=== PATIENT | male | born 1955 | race American Indian/Alaskan Native ===

== ENCOUNTER → 2017-11-12 10:24 | Outpatient (CLI) | payer OTHER, SELFPAY | PROVIDERS: Visit Provider Family Medicine | DX: K30 Functional dyspepsia (principal) | CPT/HCPCS: 36415; 86677 ==

== ENCOUNTER → 2020-06-30 13:09 | Outpatient (CLI) | payer MEDICARE, MEDICAID, OTHER, SELFPAY ==
[2020-06-30 15:01] LABS: Add Manual Diff / Slide Review NO; Basophils Absolute Auto 100 /uL (0-100); Basophils Percent Auto 1.1 % (0-2); Eosinophils Absolute Auto 200 /uL (0-450); Eosinophils Percent Auto 4.4 % (2-4); Hematocrit 32.4 % (41-53); Hemoglobin 10.4 g/dL (13.5-17.5); Lymphocytes Absolute Auto 1600 /uL (1100-4500); Lymphocytes Percent Auto 31.1 % (25-40); Mean Corpuscular Hemoglobin 23.7 PG (26-34); Monocytes Absolute Auto 500 /uL (0-900); Monocytes Percent Auto 9.1 % (3-14); Neutrophils Absolute Auto 2800 /uL (1500-7000); Neutrophils Percent Auto 54.3 % (50-75); Platelet Count 264 X10^3/uL (150-400); Red Blood Cell Count 4.38 X10^6/uL (4.5-5.9); White Blood Cell Count 5.1 X10^3/uL (4.5-11.0)
[2020-06-30 15:36] LABS: Alanine Aminotransferase 11 IU/L (<50); Albumin 3.9 g/dL (3.5-5.0); Albumin Globulin Ratio 1.2 (1.0-2.8); Alkaline Phosphatase 71 U/L (38-126); Aspartate Aminotransferase 23 IU/L (17-59); BUN Creatinine Ratio 10.5 (6-22); Bilirubin Total 0.7 mg/dL (0.2-1.3); Blood Urea Nitrogen 9 mg/dL (9-20); Calcium 8.5 mg/dL (8.4-10.2); Carbon Dioxide 21 mmol/L (22-32); Chloride 108 mmol/L (98-107); Estimated Glomerular Filt Rate > 60.0 mL/min (>60); Globulin 3.3 g/dL (1.7-4.1); Glucose 102 mg/dL (80-110); HEMOLYSIS < 15 (0-50); Potassium 3.8 mmol/L (3.4-5.1); Sodium 136 mmol/L (137-145); Total Protein 7.2 g/dL (6.3-8.2)
[2020-06-30 15:36] LABS: Iron 25 ug/dL (49-181)
[2020-06-30 15:46] LABS: Total Iron Binding Capacity 428 ug/dL (261-462)
[2020-07-04 17:16] LABS: Interpretation Positive (Negative)
== END ==
PROVIDERS: PCP Family Medicine; Referring Provider Family Medicine; Visit Provider Family Medicine
DX: R10.9 Unspecified abdominal pain (principal)
CPT/HCPCS: 36415; 80053; 83013; 83540; 83550; 85025

== ENCOUNTER 2021-06-06 13:12 | Emergency (ER) | payer MEDICARE, MEDICAID, OTHER, SELFPAY ==
[2021-06-06] VITALS (10 sets, daily range): BP systolic 109–119; BP diastolic 71–82; PULSE 94–104; RESP 15–20; TEMP 36.2; O2SAT 97–100; BMI 26.6
--- NOTE | 2021-06-06 13:37 | DI.RAD.S_ITS ---
PROCEDURE: XR CHEST 2V INDICATIONS: shortness of breath TECHNIQUE: 2 views of the chest were acquired. COMPARISON: [facility], CR, XR CHEST 1 VIEW, 09/22/2018, 23:33. [facility], CR, CHEST 1VW (PORTABLE), 04/19/2012, 12:24. FINDINGS: Surgical changes and devices: Cholecystectomy clips are seen. Lungs and pleura: Generalized interstitial prominence can be seen. Likely trace bilateral pleural effusions are present. No pneumothorax. Mediastinum: Mediastinal contours are normal. Heart size is moderately enlarged. Bones and chest wall: No suspicious bony abnormalities. Soft tissues appear unremarkable. IMPRESSION: Cardiomegaly with interstitial prominence and likely trace bilateral pleural effusions. Please correlate with patient presentation, physical examination findings, and laboratory values for congestive heart failure. Dictated by: Gurpreet Sanchez M.D. on 06/06/2021 at 13:05 Approved by: Gurpreet Sanchez M.D. on 06/06/2021 at 13:06
[2021-06-06 14:05] LABS: Add Manual Diff / Slide Review NO; Basophils Absolute Auto 100 /uL (0-100); Basophils Percent Auto 1.3 % (0-2); Eosinophils Absolute Auto 0 /uL (0-450); Eosinophils Percent Auto 0.7 % (2-4); Hemoglobin 8.9 g/dL (13.5-17.5); Lymphocytes Absolute Auto 1200 /uL (1100-4500); Lymphocytes Percent Auto 24.9 % (25-40); Mean Corpuscular HGB Conc 31.7 % (30-36); Mean Corpuscular Hemoglobin 21.9 PG (26-34); Monocytes Absolute Auto 500 /uL (0-900); Monocytes Percent Auto 10.5 % (3-14); Neutrophils Absolute Auto 3000 /uL (1500-7000); Neutrophils Percent Auto 62.6 % (50-75); Platelet Count 270 X10^3/uL (150-400); Red Blood Cell Count 4.06 X10^6/uL (4.5-5.9); Red Cell Distribution Width 17.6 % (11.6-14.8); White Blood Cell Count 4.8 X10^3/uL (4.5-11.0)
[2021-06-06 14:17] LABS: Alanine Aminotransferase 23 IU/L (<50); Albumin 3.7 g/dL (3.5-5.0); Albumin Globulin Ratio 1.2 (1.0-2.8); Alkaline Phosphatase 71 U/L (38-126); Aspartate Aminotransferase 33 IU/L (17-59); BUN Creatinine Ratio 15.4 (6-22); Bilirubin Total 1.1 mg/dL (0.2-1.3); Blood Urea Nitrogen 14 mg/dL (9-20); Calcium 7.9 mg/dL (8.4-10.2); Carbon Dioxide 17 mmol/L (22-32); Chloride 108 mmol/L (98-107); Estimated Glomerular Filt Rate > 60.0 mL/min (>60); Globulin 3.1 g/dL (1.7-4.1); Glucose 99 mg/dL (80-110); HEMOLYSIS < 15 (0-50); Sodium 136 mmol/L (137-145); Total Protein 6.8 g/dL (6.3-8.2)
[2021-06-06 14:26] LABS: Lactate (Lactic Acid) 1.7 mmol/L (0.7-2.1)
[2021-06-06 15:23] LABS: Hypochromasia 1+; Poikilocytosis 4+
[2021-06-06 15:24] LABS: Acanthocytes 3+; Anisocytosis 1+; Microcytosis 1+; Ovalocytes 2+
[2021-06-06 15:30] LABS: Burr Cells 2+
--- NOTE | 2021-06-06 15:39 | ED_ITS ---
HPI - SOB/Dyspnea <KIRK Jose - Last Filed: 06/06/21 19:53> General Chief Complaint: Shortness of Breath/Dyspnea Stated Complaint: Trouble breathing, low iron Time Seen by Provider: 06/06/21 14:37 Source: patient Mode of arrival: Wheelchair History of Present Illness HPI Narrative: This is a 65-year-old male arrives to the emergency department after being sent over from the [facility] for shortness of breath, fatigue, and a stable but low H&H without any signs of bleeding. Patient states that he has had anemia since childhood, he states is intermittent and sometimes it is not present, over the last 2 weeks he has become increasingly more fatigued, states that he is short of breath with any exertion, and tired all of the time. He denies any pain, fever, chest pain, abdominal pain, injury, blood in his stool or his urine, or any other symptom. Patient states his primary care provider Dr. Patel ordered him an iron infusion but nobody has called him so he came to the emergency department for shortness of breath today. Patient states he has never had an iron infusion in the past, but he has lab work showing a low iron level. Patient denies any known history of COPD, CHF, states he was thought to have had an HI 1 year ago, he states he took medication for year, and then they told him he did not have an HI. Patient has never had any surgical intervention in his chest, he denies orthopnea, denies asthma, drinking alcohol, substance use or abuse, history of hypertension, or any other medical history. He states he takes no medications, and has not had any recent trauma. Related Data Previous Rx's Medication Instructions Recorded cyclobenzaprine 10 mg tablet 10 mg PO TID #15 tab 04/18/17 omeprazole 40 mg capsule,delayed 40 mg PO HS #30 cap 04/18/17 release betamethasone dipropionate 0.05 % 1 applictn TOPICAL TIDP PRN #45 10/25/17 topical ointment gram furosemide 40 mg tablet 40 mg PO DAILY 5 Days #5 tab 06/06/21 Allergies Allergy/AdvReac Type Severity Reaction Status Date / Time No Known Drug Allergies Allergy Verified 06/06/21 13:35 Review of Systems <KIRK Jose - Last Filed: 06/06/21 19:53> Review of Systems Narrative: General: denies fever, chills Head/Neck: denies headache, neck pain Eyes: denies visual changes, eye pain Cardio: denies chest pain, palpitations Respiratory: denies shortness of breath, cough GI: denies abdominal pain, nausea, vomiting, or diarrhea : denies dysuria, hematuria MSK: denies joint pain, muscle weakness Skin: denies rash, itching Neuro: denies numbness, tingling Patient History <KIRK Jose - Last Filed: 06/06/21 19:53> Social History Smoking Status: Former smoker Smoking Status: Former smoker Substance Use Type: does not use Exam <KIRK Jose - Last Filed: 06/06/21 19:53> Narrative Exam Narrative: Independently reviewed vitals signs and nursing notes. General: Awake, appears tired, fatigued, flat affect nontoxic, no cardiorespiratory distress Head/Neck: Atraumatic, neck full range of motion Eyes: EOMI, conjunctiva normal Nose: nares patent, no rhinorrhea Mouth/Throat: moist mucus membranes, no oral lesions Cardio: Regular rate and rhythm, sinus rhythm on monitor, no peripheral edema Respiratory: respirations unlabored without wheezing, stridor, or rales. No retractions., no increased work of breathing, no tachypnea GI: Abdomen soft, nontender to palpation MSK: Moves all extremities, neurovascularly intact Skin: Normal capillary refill, no rash Neuro: Normal speech and cognition, normal gait Initial Vital Signs Initial Vital Signs: Vital Signs Temperature 97.2 F L 06/06/21 13:31 Pulse Rate 94 H 06/06/21 13:31 Respiratory Rate 20 06/06/21 13:31 Blood Pressure 109/73 06/06/21 13:31 Pulse Oximetry 100 06/06/21 13:31 <Katerin Gaviria DO - Last Filed: 06/10/21 02:36> Initial Vital Signs Initial Vital Signs: Vital Signs Temperature 97.2 F L 06/06/21 13:31 Pulse Rate 94 H 06/06/21 13:31 Respiratory Rate 20 06/06/21 13:31 Blood Pressure 109/73 04/05/22 13:31 Pulse Oximetry 100 06/06/21 13:31 Course <KIRK Jose - Last Filed: 06/06/21 19:53> Orders Ordered: Discontinued Medications Furosemide (Furosemide 40 Mg/4 Ml Vial) 40 mg IV NOW ONE Stop: 06/06/21 16:57 Last Admin: 06/06/21 17:27 Dose: 40 mg Documented by: CIERRA Vital Signs Vital signs: Vital Signs - 8 hr 06/06/21 13:31 06/06/21 14:25 06/06/21 14:30 Temperature 97.2 F L Pulse Rate 94 H 97 H 99 H Respiratory Rate 20 20 18 Blood Pressure 109/73 109/75 Pulse Oximetry 100 99 98 06/06/21 15:00 06/06/21 15:30 06/06/21 16:00 Temperature Pulse Rate 94 H 96 H 95 H Respiratory Rate 17 18 16 Blood Pressure 111/71 112/75 117/74 Pulse Oximetry 99 97 98 06/06/21 16:30 06/06/21 17:00 06/06/21 17:30 Temperature Pulse Rate 100 H 100 H 104 H Respiratory Rate 17 15 18 Blood Pressure 112/80 119/82 118/82 Pulse Oximetry 98 97 97 06/06/21 18:00 Temperature Pulse Rate 100 H Respiratory Rate 17 Blood Pressure 111/76 Pulse Oximetry 99 <Katerin Gaviria DO - Last Filed: 06/10/21 02:36> Orders Ordered: Discontinued Medications Furosemide (Furosemide 40 Mg/4 Ml Vial) 40 mg IV NOW ONE Stop: 06/06/21 16:57 Last Admin: 06/06/21 17:27 Dose: 40 mg Documented by: CIERRA Vital Signs Vital signs: Vital Signs - 8 hr 06/06/21 13:31 06/06/21 14:25 06/06/21 14:30 Temperature 97.2 F L Pulse Rate 94 H 97 H 99 H Respiratory Rate 20 20 18 Blood Pressure 109/73 109/75 Pulse Oximetry 100 99 98 06/06/21 15:00 06/06/21 15:30 06/06/21 16:00 Temperature Pulse Rate 94 H 96 H 95 H Respiratory Rate 17 18 16 Blood Pressure 111/71 112/75 117/74 Pulse Oximetry 99 97 98 06/06/21 16:30 06/06/21 17:00 06/06/21 17:30 Temperature Pulse Rate 100 H 100 H 104 H Respiratory Rate 17 15 18 Blood Pressure 112/80 119/82 118/82 Pulse Oximetry 98 97 97 06/06/21 18:00 Temperature Pulse Rate 100 H Respiratory Rate 17 Blood Pressure 111/76 Pulse Oximetry 99 MDM - SOB/Dyspnea <Marybeth Masterson, [facility] - Last Filed: 06/06/21 19:53> Lab Data Result diagrams: 06/06/21 13:52 06/06/21 13:52 Labs: Lab Results 06/06/21 06/06/21 06/06/21 Range/Units 13:52 13:52 13:52 WBC 4.8 (4.5-11.0) X10^3/uL RBC 4.06 L (4.5-5.9) X10^6/uL Hgb 8.9 L (13.5-17.5) g/dL Hct 28.0 L (41-53) % MCV 69.0 L (80-100) fL MCH 21.9 L (26-34) PG MCHC 31.7 (30-36) % RDW 17.6 H (11.6-14.8) % Plt Count 270 (150-400) X10^3/uL Neut % (Auto) 62.6 (50-75) % Lymph % (Auto) 24.9 L (25-40) % Stephens % (Auto) 10.5 (3-14) % Eos % (Auto) 0.7 L (2-4) % Baso % (Auto) 1.3 (0-2) % Neut # (Auto) 3000 (4179-4514) /uL Lymph # (Auto) 1200 (8479-5011) /uL Stephens # (Auto) 500 (0-900) /uL Eos # (Auto) 0 (0-450) /uL Baso # (Auto) 100 (0-100) /uL RBC Morphology See below Hypochromasia 1+ H Poikilocytosis 4+ H Anisocytosis 1+ H Microcytosis 1+ H Ovalocytes 2+ H Tivoli Cells 2+ H Acanthocytes (Spur) 3+ Sodium 136 L (137-145) mmol/L Potassium 4.0 (3.4-5.1) mmol/L Chloride 108 H (98-107) mmol/L Carbon Dioxide 17 L (22-32) mmol/L BUN 14 (9-20) mg/dL Creatinine 0.91 (0.66-1.25) mg/dL Estimated GFR > 60.0 (>60) mL/min BUN/Creatinine Ratio 15.4 (6-22) Glucose 99 (80-110) mg/dL Lactate 1.7 (0.7-2.1) mmol/L Calcium 7.9 L (8.4-10.2) mg/dL Total Bilirubin 1.1 (0.2-1.3) mg/dL AST 33 (17-59) IU/L ALT 23 (<50) IU/L Alkaline Phosphatase 71 (38-126) U/L Total Creatine Kinase (55-170) U/L CK-MB (CK-2) CK-MB (CK-2) Rel Index Troponin I (0.01-0.034) ng/mL NT-Pro-B Natriuret Pep (<125) pg/mL Total Protein 6.8 (6.3-8.2) g/dL Albumin 3.7 (3.5-5.0) g/dL Globulin 3.1 (1.7-4.1) g/dL Albumin/Globulin Ratio 1.2 (1.0-2.8) 06/06/21 Range/Units 13:52 WBC (4.5-11.0) X10^3/uL RBC (4.5-5.9) X10^6/uL Hgb (13.5-17.5) g/dL Hct (41-53) % MCV (80-100) fL MCH (26-34) PG MCHC (30-36) % RDW (11.6-14.8) % Plt Count (150-400) X10^3/uL Neut % (Auto) (50-75) % Lymph % (Auto) (25-40) % Stephens % (Auto) (3-14) % Eos % (Auto) (2-4) % Baso % (Auto) (0-2) % Neut # (Auto) (3072-1983) /uL Lymph # (Auto) (8279-9244) /uL Stephens # (Auto) (0-900) /uL Eos # (Auto) (0-450) /uL Baso # (Auto) (0-100) /uL RBC Morphology Hypochromasia Poikilocytosis Anisocytosis Microcytosis Ovalocytes Chandler Cells Acanthocytes (Spur) Sodium (137-145) mmol/L Potassium (3.4-5.1) mmol/L Chloride (98-107) mmol/L Carbon Dioxide (22-32) mmol/L BUN (9-20) mg/dL Creatinine (0.66-1.25) mg/dL Estimated GFR (>60) mL/min BUN/Creatinine Ratio (6-22) Glucose (80-110) mg/dL Lactate (0.7-2.1) mmol/L Calcium (8.4-10.2) mg/dL Total Bilirubin (0.2-1.3) mg/dL AST (17-59) IU/L ALT (<50) IU/L Alkaline Phosphatase (38-126) U/L Total Creatine Kinase 96 (55-170) U/L CK-MB (CK-2) TNP CK-MB (CK-2) Rel Index TNP Troponin I 0.013 (0.01-0.034) ng/mL NT-Pro-B Natriuret Pep 85476 H (<125) pg/mL Total Protein (6.3-8.2) g/dL Albumin (3.5-5.0) g/dL Globulin (1.7-4.1) g/dL Albumin/Globulin Ratio (1.0-2.8) Point of Care Testing Glucose POC 94 Imaging Data Chest x-ray: Radiologist's Impression: PROCEDURE:? XR CHEST 2V ? INDICATIONS:? shortness of breath ? TECHNIQUE:? 2 views of the chest were acquired.? ? COMPARISON:? [facility], CR, XR CHEST 1 VIEW, 09/22/2018, 23:33.? [facility], CR, CHEST 1VW (PORTABLE), 04/19/2012, 12:24. ? FINDINGS:? ? Surgical changes and devices:? Cholecystectomy clips are seen.? ? Lungs and pleura:? Generalized interstitial prominence can be seen.? Likely trace bilateral pleural effusions are present.? No pneumothorax.? ? Mediastinum:? Mediastinal contours are normal.? Heart size is moderately en larged.? ? Bones and chest wall:? No suspicious bony abnormalities.? Soft tissues appear unremarkable.? ? ? IMPRESSION:? Cardiomegaly with interstitial prominence and likely trace bilateral pleural effusions. Please correlate with patient presentation, physical examination findings, and laboratory values for congestive heart failure. ? ? ? Dictated by: Gurpreet Sanchez M.D. on 06/06/2021 at 13:05 ? ? Approved by: Gurpreet Sanchez M.D. on 06/06/2021 at 13:06 ? ECG Data Interpretation: EKG independently reviewed by myself and Dr. Katerin Gaviria reveals normal sinus rhythm at [95] bpm with regular axis and intervals. Occasional PACs, no STEMI, ST segment changes, arrhythmia, or acute ischemic changes. MDM Narrative Medical decision making narrative: This is a 65-year-old male who presents to the emergency department with chief complaint of shortness of breath and low iron. Patient came from the [facility] this morning with his lab work showing that he has stable but low H&H 8.4 and 28.6. Patient states that he has had anemia all of his life, he states this is iron deficiency anemia, he states that it comes and goes and he has never had an iron infusion in the past. Patient is complaining of fatigue over the last 2 weeks being greater than he has ever had, feeling tired all the time, now with shortness of breath with exertion. He denies any orthopnea, states he has an occasional productive cough, denies any history of CHF or COPD, takes no medications. Patient's lab work is significant for hemoglobin of 8.9, hematocrit of 28.0, this is down slightly since his last draw 1 year ago of 10.4 and 32.4 but is stable with his most recent lab work from his primary care provider earlier this month. Patient has not had any blood in his stool or his urine, denies any trauma, denies any smoking, substance use, alcohol use, chest pain, or wheezing. Chest x-ray today shows cardiomegaly with interstitial prominence and likely trace bilateral pleural effusions. Breath sounds are clear bilaterally with diminished bases, patient states that his breathing feels heavy and he is breathing more shallow without tachypnea, or abnormal breath sounds. Lab work does not show any leukocytosis, RBC morphology was completed, please see labs for details, smear path review is still pending, no gross electrolyte abnormalities, lactate is 1.7, BNP without any priors to compare to was 16,000. No other abnormalities found in his labs. Patient was not given any fluid in the emergency department, he was given 40 mg of Lasix, and prescribed 40 mg daily p.o. for the next 5 days. He was recommended to follow-up with his primary care provider for this new finding of congestive heart failure. Unknown how long this has been worsening. Patient was instructed to eat a healthy diet of fruits and vegetables and start taking a multivitamin daily for the next few days to help prevent any electrolyte abnormalities. Patient understands to have close follow-up with his primary care provider, he was encouraged to have a low-salt diet, try to avoid excess fluids, and not go out of town like he was planning on doing. Patient is appropriate and amenable to discharge home. Vital signs are stable on repeat examination is unremarkable. Patient has been informed of results. Patient has been given strict return to ER precautions for any new or worsening symptoms. Patient understands to follow up closely with outpatient providers as instructed. Patient understands plan and agrees to discharge home. All questions and concerns answered at this time. <Katerin Gaviria, DO - Last Filed: 06/10/21 02:36> Lab Data Labs: Lab Results 06/06/21 06/06/21 06/06/21 Range/Units 13:52 13:52 13:52 WBC 4.8 (4.5-11.0) X10^3/uL RBC 4.06 L (4.5-5.9) X10^6/uL Hgb 8.9 L (13.5-17.5) g/dL Hct 28.0 L (41-53) % MCV 69.0 L (80-100) fL MCH 21.9 L (26-34) PG MCHC 31.7 (30-36) % RDW 17.6 H (11.6-14.8) % Plt Count 270 (150-400) X10^3/uL Neut % (Auto) 62.6 (50-75) % Lymph % (Auto) 24.9 L (25-40) % Stephens % (Auto) 10.5 (3-14) % Eos % (Auto) 0.7 L (2-4) % Baso % (Auto) 1.3 (0-2) % Neut # (Auto) 3000 (2580-7781) /uL Lymph # (Auto) 1200 (8319-4598) /uL Stephens # (Auto) 500 (0-900) /uL Eos # (Auto) 0 (0-450) /uL Baso # (Auto) 100 (0-100) /uL RBC Morphology See below Hypochromasia 1+ H Poikilocytosis 4+ H Anisocytosis 1+ H Microcytosis 1+ H Ovalocytes 2+ H Tivoli Cells 2+ H Acanthocytes (Spur) 3+ Sodium 136 L (137-145) mmol/L Potassium 4.0 (3.4-5.1) mmol/L Chloride 108 H (98-107) mmol/L Carbon Dioxide 17 L (22-32) mmol/L BUN 14 (9-20) mg/dL Creatinine 0.91 (0.66-1.25) mg/dL Estimated GFR > 60.0 (>60) mL/min BUN/Creatinine Ratio 15.4 (6-22) Glucose 99 (80-110) mg/dL Lactate 1.7 (0.7-2.1) mmol/L Calcium 7.9 L (8.4-10.2) mg/dL Total Bilirubin 1.1 (0.2-1.3) mg/dL AST 33 (17-59) IU/L ALT 23 (<50) IU/L Alkaline Phosphatase 71 (38-126) U/L Total Creatine Kinase (55-170) U/L CK-MB (CK-2) CK-MB (CK-2) Rel Index Troponin I (0.01-0.034) ng/mL NT-Pro-B Natriuret Pep (<125) pg/mL Total Protein 6.8 (6.3-8.2) g/dL Albumin 3.7 (3.5-5.0) g/dL Globulin 3.1 (1.7-4.1) g/dL Albumin/Globulin Ratio 1.2 (1.0-2.8) 06/06/21 Range/Units 13:52 WBC (4.5-11.0) X10^3/uL RBC (4.5-5.9) X10^6/uL Hgb (13.5-17.5) g/dL Hct (41-53) % MCV (80-100) fL MCH (26-34) PG MCHC (30-36) % RDW (11.6-14.8) % Plt Count (150-400) X10^3/uL Neut % (Auto) (50-75) % Lymph % (Auto) (25-40) % Stephens % (Auto) (3-14) % Eos % (Auto) (2-4) % Baso % (Auto) (0-2) % Neut # (Auto) (9401-5684) /uL Lymph # (Auto) (1270-8590) /uL Stephens # (Auto) (0-900) /uL Eos # (Auto) (0-450) /uL Baso # (Auto) (0-100) /uL RBC Morphology Hypochromasia Poikilocytosis Anisocytosis Microcytosis Ovalocytes Tivoli Cells Acanthocytes (Spur) Sodium (137-145) mmol/L Potassium (3.4-5.1) mmol/L Chloride (98-107) mmol/L Carbon Dioxide (22-32) mmol/L BUN (9-20) mg/dL Creatinine (0.66-1.25) mg/dL Estimated GFR (>60) mL/min BUN/Creatinine Ratio (6-22) Glucose (80-110) mg/dL Lactate (0.7-2.1) mmol/L Calcium (8.4-10.2) mg/dL Total Bilirubin (0.2-1.3) mg/dL AST (17-59) IU/L ALT (<50) IU/L Alkaline Phosphatase (38-126) U/L Total Creatine Kinase 96 (55-170) U/L CK-MB (CK-2) TNP CK-MB (CK-2) Rel Index TNP Troponin I 0.013 (0.01-0.034) ng/mL NT-Pro-B Natriuret Pep 54021 H (<125) pg/mL Total Protein (6.3-8.2) g/dL Albumin (3.5-5.0) g/dL Globulin (1.7-4.1) g/dL Albumin/Globulin Ratio (1.0-2.8) Point of Care Testing Glucose POC 94 ECG Data Interpretation: EKG independently reviewed by myself and Dr. Katerin Gaviria reveals normal sinus rhythm at [95] bpm with regular axis and intervals. Occasional PACs, no STEMI, ST segment changes, arrhythmia, or acute ischemic changes. Sinus rhythm occasional PVC. Left axis deviation. Q-wave in V1 V2. No ST elevation. No depression appreciated. No priors for comparison. Discharge Plan Departure Patient Disposition: Home Clinical Impression: CHF (congestive heart failure) Qualifiers: Heart failure type: unspecified Heart failure chronicity: unspecified Qualified Code(s): I50.9 - Heart failure, unspecified Anemia Qualifiers: Anemia type: iron deficiency Iron deficiency anemia type: unspecified iron deficiency Qualified Code(s): D50.9 - Iron deficiency anemia, unspecified Instructions: Heart Failure, Anemia Activity Restrictions/Additional Instructions: *You have been diagnosed with congestive heart failure, likely causing her shortness of breath, adding to your fatigue, and your cough. Please take your water pill aka Lasix/furosemide in the morning for the next 5 days. Please eat a healthy diet, low-salt, take a multivitamin or eat fresh fruits and vegetables to obtain urine electrolytes. Please have your labs checked again in the next few days by your primary care provider. Please follow-up with her about this diagnosis, I will send your chart to her. Thank you for trusting us with your c are, I hope that you start feeling better soon, please wait for iron infusion center to call you, I presume this will be in the next day or 2. Please return to the emergency department for any worsening of your symptoms. Today does not appear that you have any current infection, no pneumonia, your heart does not appear strain, your kidney function looks great. Please follow-up with your primary care provider and I wish you the best moving forward. *What to do: *Please continue to take your regular medications as directed. [x ] New medication prescriptions sent to your pharmacy: [[facility] ] [ ] New medication written as a paper prescription [ ] No new medications given *Please follow up with your primary care provider in 2-3 days, call for an a ppointment. Let them know you were seen in the Emergency Department and that we asked that you be seen for follow-up. We will electronically transmit a record of today's note if your PCP is in our system *If you do not have a primary care provider please contact [phone] to establish care with one of the [facility] primary care providers. *Return to Emergency Department if you should have any new, worsening or concerning symptoms, such as [fever greater than 101F, chills, worsening pain, persistent vomiting or other bothersome symptoms] Prescriptions: New furosemide 40 mg tablet 40 mg PO DAILY 5 Days Qty: 5 0RF No Action cyclobenzaprine 10 MG tablet 10 mg PO TID Qty: 15 2RF omeprazole 40 MG capsule,delayed release(DR/EC) 40 mg PO HS Qty: 30 1RF betamethasone dipropionate 0.05 % ointment 1 applictn Topical TIDP PRN (Reason: rash) Qty: 45 0RF Referrals: Herberth Lebron MD [Primary Care Provider] - Toya Patel MD [Non-Staff] - 3-5 days <Katerin Gaviria DO - Last Filed: 06/10/21 02:36> Cosign ED Attending Cosignature Attestation: I was immediately available in the department for consultation. Documentation has been reviewed. Patient case was distress, EKG was reviewed. Patient's hemoglobin is stable last check was 8.9 but is low at 8.4. Patient appears to also be in CHF. Needs follow-up regarding his hemoglobin and potential workup for anemia. Patient heart rate was in the 90s, has not been hypotensive or hypoxic during his stay.
[2021-06-06 16:18] LABS: Creatine Kinase 96 U/L (55-170)
[2021-06-06 16:31] LABS: NT-proBNP (BNP-Adult 18+) 16000 pg/mL (<125); Troponin I 0.013 ng/mL (0.01-0.034)
[2021-06-06] MEDS: FUROSEMIDE 40 MG/4 ML VIAL IV (17:27)
--- NOTE | 2021-06-06 18:18 | PC.NURSE ---
Pt states he has not eaten in over 24 hrs due to being too busy to eat. Pt reports he did not receive his iron infusion last week because no one called me. I asked the patient if he called his doctor to schedule the iron infusion and he said no. Pt given Lasix, output 400ml+600ml = 1000ml. total. Provider aware.
== END 2021-06-06 18:22 | disposition home or self-care (01) ==
PROVIDERS: Emergency Medicine; Emergency Provider Nurse Practitioner Critical Care Medicine; PCP Family Medicine
DX: I50.9 Heart failure, unspecified (principal); D50.9 Iron deficiency anemia, unspecified; I49.1 Atrial premature depolarization
CPT/HCPCS: 36415; 71046; 80053; 82550; 82962; 83605; 83880; 84484; 85025; 93005; 93010; 96374; 99284; J1940

== ENCOUNTER → 2024-12-15 07:43 | Outpatient (CLI) | payer MEDICARE, SELFPAY ==
--- NOTE | 2024-12-15 17:40 | DI.NM.S_ITS ---
DATE OF SERVICE: 12/15/2024 PROCEDURE: Pharmacological perfusion study. INDICATIONS: Underlying dilated cardiomyopathy, congestive heart failure, hypertension and hyperlipidemia. RADIOPHARMACEUTICAL: 25.2 millicuries technetium-99m Myoview IV was injected at stress and 12.4 millicuries technetium-99m Myoview IV was injected at rest. CARDIAC STRESS: The patient underwent IV Lexiscan pharmacological perfusion study as per standard protocol under the supervision of an attending staff. The patient remained hemodynamically stable. Baseline blood pressure 122/70. Baseline rhythm sinus with left anterior fascicular block with intermittent PACs and PVCs. During stress no new convincing ischemic changes or significant arrhythmias seen. No chest pain. Minimal dyspnea. RAW DATA: There is increased subdiaphragmatic activity. GATED STUDY: Resting LV ejection fraction 37 and stress LV ejection fraction 51% with inferior wall motion abnormalities. Resting end- diastolic volume of 254 suggestive of dilated LV. TID ratio 0.93, which is within normal limits. MYOCARDIAL PERFUSION SCAN: Perfusion study: Stress supine and resting supine images revealed large size, severely decreased perfusion of inferior wall, entire inferior apex and base to mid inferoseptal wall. During stress prone images, there was partial improvement. However, patient had moderate to severely decreased perfusion of base to mid inferior wall and mildly decreased perfusion of inferior apex during stress prone images. No reversible ischemia. 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 Dilated left ventricle. Resting LV ejection fraction 37 and stress LV ejection fraction 51%. Olu Hernandez - ROHIT/nicci/AY doc#: [id number]/job#: [id number] dd: 12/15/2024 16:43:00 dt: 12/15/2024 17:29:00 DICTATING MD/COPIES TO: Kareem Salguero MD; Dr. Rodarte COPIES MNE: KIMBERLY; ; Dr. Rodarte
== END ==
PROVIDERS: PCP Family Medicine; Referring Provider Family Medicine; Visit Provider Internal Medicine Cardiovascular Disease
DX: I50.22 Chronic systolic (congestive) heart failure (principal); I25.10 Atherosclerotic heart disease of native coronary artery without angina pectoris; R94.31 Abnormal electrocardiogram [ECG] [EKG]
CPT/HCPCS: 78452; 93017; A9502; J2785